=== PATIENT | male | born 1940 | race Asian ===

== ENCOUNTER 2018-04-29 14:35 | Emergency (ER) | payer MEDICARE, BC ==
[~2018-04-29] VITALS: Ht 167.6 cm; Wt 64.4 kg
[2018-04-29 14:59] VITALS: BP 162/67
[2018-04-29 16:37] LABS: Basophils # (auto) 0.1 uL; Basophils % (auto) 1.2 % (0.0-2.0); Eosinophils # (auto) 0.1 uL; Eosinophils % (auto) 1.5 % (0.0-7.0); Hematocrit 38.5 % (41.0-53.0); Hemoglobin 12.8 g/dL (13.5-17.5); Lymphocytes # (auto) 1.5 uL; Lymphocytes % (auto) 24.8 % (10.0-50.0); Mean Corpuscular Hemoglobin 31.5 pg (28.0-32.0); Mean Corpuscular Hgb Conc. 33.3 g/dL (32.0-36.0); Mean Corpuscular Volume 94.6 fL (80.0-100.0); Monocytes # (auto) 0.6 uL; Monocytes % (auto) 9.5 % (0.0-12.0); Neutrophils # (auto) 3.9 uL; Platelet Count (auto) 243 10^3/uL (140-450); Red Blood Cells 4.07 10^6/uL (4.5-5.90); Red Cell Distribution Width 13.1 % (11.8-14.3); White Blood Cell 6.2 10^3/uL (4.4-10.8)
[2018-04-29 16:42] LABS: Albumin 3.4 g/dL (3.4-5.0); Calcium 8.9 mg/dL (8.5-10.1); Potassium 3.3 mmol/L (3.5-5.1)
[2018-04-29 16:44] LABS: BUN/Creatinine Ratio 24.4
[2018-04-29 16:47] LABS: Bilirubin, Total 0.3 mg/dL (0.2-1.0); Total Protein 8.3 g/dL (6.4-8.2)
[2018-04-29 17:26] LABS: Urine Bacteria NONE SEEN /hpf (None Seen); Urine Blood Negative /uL (Negative); Urine Specific Gravity 1.014 (1.001-1.035); Urine WBC 1 /hpf (0 - 3)
[2018-04-29] MEDS ORDERED: POTASSIUM EFFERVESENT TAB 25 MEQ PO ONE (18:15)
[2018-04-29] MEDS ORDERED: KETOROLAC TROMETH 60MG/2ML VIAL IM ONE (18:30)
== END 2018-05-02 00:12 | disposition left against medical advice (07) ==
LOC: ER 14:35
DX: S33.5XXA Sprain of ligaments of lumbar spine, initial encounter (principal); I10 Essential (primary) hypertension; X58.XXXA Exposure to other specified factors, initial encounter; Y93.89 Activity, other specified; Y92.89 Other specified places as the place of occurrence of the external cause; Y99.8 Other external cause status
CPT/HCPCS: 36415; 72100; 74018; 80053; 81001; 85025; 93005

== ENCOUNTER 2018-05-03 16:00 | Emergency (ER) | payer MEDICARE, BC ==
[~2018-05-03] VITALS: Ht 167.6 cm; Wt 66.2 kg
[2018-05-03] MEDS ORDERED: HYDROcodone-ACET 10/325MG TAB PO ONE (16:30)
[2018-05-03 16:35] VITALS: BP 157/60
== END 2018-05-03 17:29 | disposition home or self-care (01) ==
LOC: ER 16:04
DX: S33.5XXA Sprain of ligaments of lumbar spine, initial encounter (principal); I10 Essential (primary) hypertension; X58.XXXA Exposure to other specified factors, initial encounter; Y93.89 Activity, other specified; Y92.89 Other specified places as the place of occurrence of the external cause; Y99.8 Other external cause status

== ENCOUNTER 2024-10-09 15:13 | Emergency (ER) | payer OTHER, BC ==
[~2024-10-09] VITALS: Ht 162.6 cm; Wt 65.3 kg
[2024-10-09] MEDS ORDERED: HYDR50TA47 PO (16:13)
[2024-10-09] MEDS ORDERED: LOSA-535 PO (16:13)
[2024-10-09] MEDS ORDERED: HYDR25TA5 GT (16:13)
[2024-10-09] MEDS ORDERED: LEVO125T7 PO (16:13)
[2024-10-09] MEDS ORDERED: PHEN1CAP38 PO (16:13)
--- NOTE | 2024-10-09 16:13 | ED.PDOC ---
History of Present Illness HPI Comments pt just moved to the area and has been out of his medications for 4 days. his sister gave him some of her nctz, which resolved his pedal edema. he has no symptoms now and needs medication refills. he take HCTZ 25mg daily, losartan 100mg daily, levothyroxin 125mcg daily, hydralazine 50mg bid, dilantin EX 100mg (2) daily Chief Complaint: High Blood Pressure Time Seen by MD: 15:33 Primary Care Provider: none Allergies: Coded Allergies: NO KNOWN ALLERGIES (Unverified , 04/29/18) Information Source: Patient, Relative (Sibling) Mode of Arrival: Ambulatory Severity: None Timing: Days Duration: Since onset Medication Refill: Ran out of Medication Past Medical History PAST MEDICAL HISTORY: HTN, Thyroid Past Medical History (Other): histoyr of brain AVM Surgical History: Hernia Repair Surgical History (Other): craniotomy, thyroid resection Family History Family History: Unknown Social History Smoker: Non-Smoker Alcohol: Denies ETOH Use Drugs: Denies Drug Use Lives In: Home Constitutional: denies: chills, diaphoresis, fatigue, fever, malaise, sweats, weakness, others EENTM: denies: blurred vision, double vision, ear bleeding, ear discharge, ear drainage, ear pain, ear ringing, eye pain, eye redness, hearing loss, mouth pain, mouth swelling, nasal discharge, nose bleeding, nose congestion, nose pain, photophobia, tearing, throat pain, throat swelling, voice changes, others Respiratory: denies: cough, hemoptysis, orthopnea, SOB at rest, shortness of breath, SOB with excertion, stridor, wheezing, others Cardiovascular: denies: chest pain, dizzy spells, diaphoresis, Dyspnea on exertion, edema, irregular heart beat, left arm pain, lightheadedness, palpitations, PND, syncope, others Gastrointestinal: denies: abdomen distended, abdominal pain, blood streaked bowels, constipated, diarrhea, dysphagia, difficulty swallowing, hematemesis, melena, nausea, poor appetite, poor fluid intake, rectal bleeding, rectal pain, vomiting, others Genitourinary: denies: burning, dysuria, flank pain, frequency, hematuria, incontinence, penile discharge, penile sore, pain, testicle pain, testicle swelling, urgency, others Neurological: denies: dizziness, fainting, headache, left sided numbness, left sided weakness, numbness, paresthesia, pre-existing deficit, right sided numbness, right sided weakness, seizure, speech problems, tingling, tremors, weakness, others Musculoskeletal: denies: back pain, gout, joint pain, joint swelling, muscle pain, muscle stiffness, neck pain, others Integumetry: denies: bruises, change in color, change in hair/nails, dryness, laceration, lesions, lumps, rash, wounds, others Allergic/Immunocompromised: denies: Difficulty Healing, Frequent Infections, Hives, Itching, others Hematologic/Lymphatic: denies: anemia, blood clots, easy bleeding, easy bruising, swollen glands, others Endocrine: denies: excessive hunger, excessive sweating, excessive thirst, excessive urination, flushing, intolerance to cold, intolerance to heat, unexplained weight gain, unexplained weight loss, others Psychiatric: denies: anxiety, bipolar disorder, depression, hopeless, panic disorder, schizophrenia, sleepless, suicidal, others All Other Systems: Reviewed and Negative Physical Exam General Appearance: No Apparent Distress, Normal HEENT: Normal ENT Inspection, Pharynx Normal, TMs Normal Neck: Full Range of Motion, Non-Tender, Normal, Normal Inspection Respiratory: Chest Non-Tender, Lungs Clear, No Accessory Muscle Use, No Respiratory Distress, Normal Breath Sounds Cardiovascular: No Edema, No JVD, No Murmur, No Gallop, Normal Peripheral Pulses, Regular Rate/Rhythm Breast Exam: Deferred Gastrointestinal: No Organomegaly, Non Tender, No Pulsatile Mass, Normal Bowel Sounds, Soft Genitalia: Deferred Pelvic: Deferred Rectal: Deferred Extremities: No calf tenderness, Normal capillary refill, Normal inspection, Normal range of motion, Non-tender, No pedal edema Musculoskeletal : Apperance: Normal Neurologic: Alert, bog worker II-XII nml as Tested, No Motor Deficits, Normal Affect, Normal Mood, No Sensory Deficits Cerebellar Function: Normal Reflexes: Normal Skin: Dry, Normal Color, Warm Lymphatic: No Adenopathy Was a procedure done? Was a procedure done?: No Differential Dx Considerations may include: medication refill, noncompliance X-Ray, Labs, Meds, VS Vital Signs Date Time Temp Pulse Resp B/P (MAP) Pulse Ox O2 Delivery O2 Flow Rate FiO2 2/16/25 15:40 98.5 62 17 130/59 (82) 95 98.5 10/09/24 15:40 62 17 95 Room Air 10/09/24 15:17 98.5 62 17 130/59 (82) 95 Time of 1ST Reevaluation: 16:06 Reevaluation 1ST: Unchanged Patient Education/Counseling: Diagnosis, Treatment, Prognosis, Need For Follow Up Family Education/Counseling: Diagnosis, Treatment, Prognosis, Need For Follow Up Additional Information pt has no symptoms. his VSS are stable and exam is unremarkable. i will refill his medications and he will establish a PCP. i provided him information for Dr Navarrete to establish with Departure 1 Departure Time of Disposition: 16:03 Impression: Primary Impression: Medication refill Additional Impressions: Hypertension Qualified Codes: I10 - Essential (primary) hypertension Seizure disorder Disposition: 01 HOME / SELF CARE / HOMELESS Condition: Good e-Prescriptions Phenytoin Sodium (DILANTIN CAPSULE) 100 Mg Cp 2 TAB PO DAILY for 30 Days, #60 CAP Prov: DENNIS ALBERT MD 10/09/24 Hydralazine Hcl (Hydralazine Hcl) 50 Mg Tab 1 TAB PO BID, #180 TAB 3 Refills Prov: DENNIS ALBERT MD 10/09/24 Levothyroxine Sodium (Levothyroxine Sodium) 125 Mcg Tab 1 TAB PO DAILY, #30 TAB 5 Refills Prov: DENNIS ALBERT MD 10/09/24 Losartan Potassium (Losartan Potassium) 100 Mg Tab 1 TAB PO DAILY, #30 TAB 5 Refills Prov: DENNIS ALBERT MD 10/09/24 Hctz (Hydrochlorothiazide) 25 Mg Tab 25 MG GT DAILY for 30 Days, #30 TAB Prov: DENNIS ALBERT MD 10/09/24 Discharged With: Self, Relative (Sibling) Critical Care Note Critical Care Time?: No Stability Stability form required: No DENNIS ALBERT MD Oct 09, 2024 16:13
[2024-10-09 17:32] VITALS: BP 139/64; PULSE 65; RESP 18; TEMP 98.9; O2SAT 97
== END 2024-10-09 17:33 | disposition home or self-care (01) ==
LOC: ER 15:13
DX: Z76.0 Encounter for issue of repeat prescription (principal); I10 Essential (primary) hypertension; E03.9 Hypothyroidism, unspecified; G40.909 Epilepsy, unspecified, not intractable, without status epilepticus; Z79.899 Other long term (current) drug therapy; Z98.890 Other specified postprocedural states